=== PATIENT | male | born 1965 | race Caucasian/White ===

== ENCOUNTER 2022-04-08 12:04 | Outpatient (CLI) | payer OTHER, SELFPAY ==
[2022-04-11 12:21] LABS: Chloride* 101 mmol/L (96-114); Sodium* 138 mmol/L (135-149)
[2022-04-11 12:23] LABS: Cholesterol* 130 mg/dL (90-199); Creatinine* 0.8 mg/dL (0.5-1.5); Estimated Glomerular Filt Rate 103 ml/min
[2022-04-11 12:24] LABS: Alanine Aminotransferase* 26 U/L (4-50); Blood Urea Nitrogen* 17 mg/dL (7-30); Carbon Dioxide* 28 mmol/L (20-32); Glucose* 161 mg/dL (60-115); Triglycerides* 127 mg/dL (40-149)
[2022-04-11 12:25] LABS: HDL Cholesterol* 37 mg/dL (>=40); LDL Cholesterol Calculated 68 mg/dL (<100)
[2022-04-11 12:55] LABS: PSA Screen* 0.27 ng/mL (0.10-4.00)
== END 2022-04-08 12:05 | disposition home or self-care (01) ==
PROVIDERS: PCP Family Medicine; Visit Provider Family Medicine
DX: Z00.00 Encounter for general adult medical examination without abnormal findings (principal); E78.5 Hyperlipidemia, unspecified; I10 Essential (primary) hypertension; E11.9 Type 2 diabetes mellitus without complications; I48.91 Unspecified atrial fibrillation; M10.9 Gout, unspecified; Z12.5 Encounter for screening for malignant neoplasm of prostate
CPT/HCPCS: 80048; 80061; 82043; 82570; 84153; 84460

== ENCOUNTER 2023-06-12 10:18 | Outpatient (CLI) | payer OTHER, SELFPAY | END 2023-06-12 10:19 | disposition home or self-care (01) | PROVIDERS: PCP Family Medicine; Visit Provider Family Medicine | DX: Z12.5 Encounter for screening for malignant neoplasm of prostate (principal); E78.5 Hyperlipidemia, unspecified; I10 Essential (primary) hypertension | CPT/HCPCS: 80048; 80061; 84460; G0103 ==

== ENCOUNTER 2024-02-15 09:35 | Outpatient (CLI) | payer OTHER, SELFPAY | END 2024-02-15 09:36 | disposition home or self-care (01) | PROVIDERS: PCP Family Medicine; Visit Provider Family Medicine | DX: I10 Essential (primary) hypertension (principal); E78.5 Hyperlipidemia, unspecified; E11.9 Type 2 diabetes mellitus without complications; Z01.818 Encounter for other preprocedural examination | CPT/HCPCS: 80048; 85025 ==

== ENCOUNTER 2024-03-14 06:13 | Day surgery (SDC) | payer OTHER, SELFPAY ==
[2024-03-14 06:32] VITALS: BMI 36.1
[2024-03-14 07:07] VITALS: BP 131/94; PULSE 82; RESP 16; TEMP 36.2; O2SAT 95
[2024-03-14] MEDS: SODIUM CHLORIDE 0.9 % (FLUSH) 10 ML SYRINGE IVF (07:08)
[2024-03-14] MEDS: BUPIVACAINE 0.5 %/EPI 1:200K 30 ML INJECTION (07:20)
[2024-03-14] MEDS: LIDOCAINE 1%-EPI 1:100,000 20 ML INFILTRATI (07:20)
[2024-03-14] MEDS: CEFAZOLIN 2 GM INJ IVP (07:34)
[2024-03-14 08:44] VITALS: BP 110/67; PULSE 83; RESP 16; TEMP 36.3; O2SAT 94
--- NOTE | 2024-03-14 08:50 | W.ANESCHARGE ---
Anesthesia Charges Start Date/Time Anesthesia Start Date: 03/14/24 Anesthesia Start Time: 07:17 Stop Date/Time Anesthesia Stop Date: 03/14/24 Anesthesia Stop Time: 08:47
[2024-03-14 09:00] VITALS: BP 121/73; PULSE 80; RESP 16; O2SAT 93
[2024-03-14] MEDS: OxyCODONE/APAP 5-325 TABLET 1 TAB PO (09:03)
[2024-03-14 09:15] VITALS: BP 124/82; PULSE 82; RESP 16; O2SAT 92
[2024-03-14 09:30] VITALS: BP 122/71; PULSE 87; RESP 16; O2SAT 93
--- NOTE | 2024-03-14 09:44 | PM.ORPRC ---
Procedure Note Date of procedure: 03/14/24 Procedure: Preop diagnosis: Right upper extremity cubital tunnel syndrome, carpal tunnel syndrome Postop diagnosis: Right upper extremity cubital tunnel syndrome, carpal tunnel syndrome Procedure: Right upper extremity cubital tunnel release, carpal tunnel release Anesthesia: Local plus monitored anesthesia care Surgeon: Ej Garcia MD assistant account manager: Alaina Fried PA-C EBL: 2 mL Complications: None Specimens: None Drains: None Preoperative antibiotics: Ancef 3g Indications: The patient has a history of right upper extremity carpal tunnel syndrome, cubital tunnel syndrome symptoms. EMG/nerve conduction study confirms the diagnosis. Despite appropriate nonoperative management they continue to have symptoms. Operative intervention was recommended. The risks, benefits alternatives and expected outcomes were discussed in detail. These included but were not limited to: Infection, bleeding, injury to blood vessel or nerve, venous thromboembolism. All questions were answered to their satisfaction. The patient was placed supine on the operating room table. IV sedation was administered. Local anesthetic was injected. The upper extremity was prepped and draped in usual sterile fashion. The limb was exsanguinated with the Ignacio bandage, the pneumatic tourniquet was inflated to 250 mm of mercury. A longitudinal incision was made centered over the ulnar nerve at the cubital tunnel. Subcutaneous dissection was taken with the scalpel and Metzenbaum and tenotomy scissors to the ulnar nerve. Dissection was carried distally to the fascia over the flexor carpi ulnaris which was divided longitudinally. We were unable to visualize the motor branch to the FCU. Dissection was carried proximally into the triceps muscle belly. This results in a wide decompression of the ulnar nerve. Flexion and extension of the elbow shows the nerve is stable. A longitudinal incision was made centered over the radial border of the ring finger at the base of the palm. Subcutaneous dissection was sharply taken through the palmar fascia and the palmaris brevis to the transverse carpal ligament. The ligament was divided in line with the incision. Proximal and distal dissection was carried with tenotomy and Metzenbaum scissors for a wide decompression of the carpal tunnel. The wounds were irrigated with normal saline. The hand wound was closed with a 3-0 nylon. The elbow wound was closed with a 2-0 Vicryl and a 3-0 Monocryl in a subcuticular fashion. Glue was used to seal the skin. A soft dressing was applied. The tourniquet was released, sponge and needle counts were correct x 2. The patient tolerated the procedure well, there were no apparent complications. They were sent to same day surgery in satisfactory condition. Plan: Use of the upper extremity as tolerates. Discontinue the intraoperative dressing on postoperative day 3 and may get the wound wet as tolerates. Follow up in the office in 2 weeks for a wound check.
== END 2024-03-14 10:04 | disposition home or self-care (01) ==
LOC: OR 06:14
PROVIDERS: PCP Family Medicine; Visit Provider Orthopaedic Surgery
PROC: (CPT 64721; principal; 2024-03-14 07:15)
DX: G56.21 Lesion of ulnar nerve, right upper limb (principal); G56.01 Carpal tunnel syndrome, right upper limb
CPT/HCPCS: 64718; 64721; 01710; 82962; A9270; J0690; J1100; J2704; J3490

== ENCOUNTER 2024-05-03 09:26 | Outpatient (CLI) | payer OTHER, SELFPAY | END 2024-05-03 09:27 | disposition home or self-care (01) | PROVIDERS: PCP Family Medicine; Visit Provider Family Medicine | DX: E78.2 Mixed hyperlipidemia (principal); E11.9 Type 2 diabetes mellitus without complications; I10 Essential (primary) hypertension; Z79.899 Other long term (current) drug therapy | CPT/HCPCS: 80048; 80061; 84460; 85025 ==

== ENCOUNTER 2024-05-09 08:52 | Day surgery (SDC) | payer OTHER, SELFPAY ==
[2024-05-09] VITALS (26 sets, daily range): BP systolic 90–125; BP diastolic 63–89; PULSE 68–94; RESP 15–18; TEMP 35.9–36.8; O2SAT 90–95; BMI 35.7
[2024-05-09] MEDS: LACTATED RINGERS 1000 ML 1,000 ML 100 ML IV ×2 (07:25→12:20)
[2024-05-09] MEDS: CELECOXIB 200 MG CAPSULE PO (09:25)
[2024-05-09] MEDS: OXYCODONE (CR) 10 MG TAB.ER.12H PO (09:25)
[2024-05-09] MEDS: ACETAMINOPHEN 500 MG TABLET 1000 MG PO ×3 (09:25→21:41)
[2024-05-09] MEDS: SODIUM CHLORIDE 0.9 % (FLUSH) 10 ML SYRINGE IVF (10:20)
--- NOTE | 2024-05-09 10:20 | SUR.PREOP ---
shoulder cleanse done, nasal swab done
[2024-05-09] MEDS: fentaNYL 100 MCG/2 ML inj IVP (10:35)
[2024-05-09] MEDS: MIDAZOLAM HCL 1 MG/ML inj IVP (10:35)
--- NOTE | 2024-05-09 10:57 | SUR.PREOP ---
TIME?OUT:?1035 r leny lo mda pt consent right shoulder PT/RN/MDA?VERIFICATION?OF?SURGICAL?SITE,?PROCEDURE,?AND?CONSENT OBTAINED?PRIOR?TO?INVASIVE?PROCEDURE.
[2024-05-09] MEDS: CEFAZOLIN 1 GM inj 3 GM IVP (11:15)
[2024-05-09] MEDS: TRANEXAMIC ACID 100 MG/ML INJ 1000 MG IV (11:25)
--- NOTE | 2024-05-09 11:40 | P.NB_ITS ---
Nerve Block Nerve Block Time Seen by Provider: 10:38 Date Seen: 05/09/24 Type of block requested by surgeon for post-operative analgesia: supraclavicular Side: right Time out performed: Yes Verification of patient name: Yes Verification of date of : Yes Site marking: site marked Name of person performing procedure: Reji Continuous monitoring Was continuous monitoring of O2 sat, B/P, quality assurance monitor chassis, recorded every 15 minutes?: Yes Procedure Checklist: sterile prep, needles and gloves Ultrasound guided. Images saved: Yes Medications given in 5ml increments after negative aspiration: Ropivicaine %: 0.5 mL: 20 Needle gauge: 22 Precedex (mcg): 25 Patient tolerated procedure well: Yes Block Charges Block Charge (with Pro Fee): Brachial Plexus Use of Ultrasound Machine for Block: Yes- US Guidance/pain block
--- NOTE | 2024-05-09 11:40 | P.ANES_ITS ---
Anesthesia Charges Start Date/Time Anesthesia Start Date: 05/09/24 Anesthesia Start Time: 11:02 Stop Date/Time Anesthesia Stop Date: 05/09/24 Anesthesia Stop Time: 14:22 Coding CPT Codes CPT Codes: ANESTH SHOULDER REPLACEMENT - 86635 ([id number]) P2 - PATIENT W/MILD SYST DISEASE, QK - RN LIAISON 2-4 CNCRNT ANES PROC, QX - FRAUD MANAGER SVC W/ MD MED DIRECTION
--- NOTE | 2024-05-09 11:40 | W.ANESCHARGE ---
Anesthesia Charges Start Date/Time Anesthesia Start Date: 05/09/24 Anesthesia Start Time: 11:02 Stop Date/Time Anesthesia Stop Date: 05/09/24 Anesthesia Stop Time: 14:22 Coding CPT Codes CPT Codes: ANESTH SHOULDER REPLACEMENT - 78429 ([id number]) P2 - PATIENT W/MILD SYST DISEASE, QK - PLASTICS ENGINEER 2-4 CNCRNT ANES PROC, QX - FIRE ASSISTANT SVC W/ MD MED DIRECTION
--- NOTE | 2024-05-09 13:37 | CRLHL7_ITS ---
For Patients: As a result of the Cures Act, medical imaging exams and procedure reports are released immediately into your electronic medical record. You may view this report before your referring provider. If you have questions, please contact your health care provider. Indication: Postop Technique: Two views right shoulder Findings/Impression: Hardware from a right shoulder arthroplasty is in satisfactory position. Bone alignment is normal. No sign of acute fracture. Postop changes are within normal limits. Dictated by Won Short MD @ 05/10/2024 8:44:05 AM (Electronically Signed)
--- NOTE | 2024-05-09 13:41 | P.ORPRC_ITS ---
Procedure Note Date of procedure: 05/09/24 Procedure: PREOPERATIVE DIAGNOSIS: End-stage the upper extremity glenohumeral joint osteoarthritis POSTOPERATIVE DIAGNOSIS: End-stage Right upper extremity glenohumeral joint osteoarthritis NAME OF OPERATION: Right upper extremity total shoulder arthroplasty, biceps tenodesis SURGEON: Ej Garcia MD CALL OR CONTACT CENTRE MANAGER: Cass Mcduffie PA-C ANESTHESIA: General endotracheal ESTIMATED BLOOD LOSS: 100 mL COMPLICATIONS: None SPECIMENS: None DRAINS: None PREOPERATIVE ANTIBIOTICS: Ancef 2 grams IMPLANTS: 1. Tornier 40 large pegged glenoid component 2. Tornier 5B humeral stem 3. 54 mm x 18 mm, high eccentric humeral head INDICATIONS: The patient is a 58-year-old with a longstanding history of severe, unrelenting right shoulder pain secondary to end-stage glenohumeral joint osteoarthritis. Despite appropriate nonoperative management, including activity modification, anti-inflammatories, [id number] pain medication, physical therapy, and injections they continue to have pain and disability. Operative intervention was offered. The risks, benefits and expected outcomes were discussed in detail. These included but were not limited to: Infection, bleeding, injury to blood vessel or nerve, venous thromboembolism. All questions were answered to their satisfaction. Use of an judicial administrative assistant was necessary throughout the case for patient positioning and safety, soft tissue retraction, and closure. PROCEDURE: General anesthesia was administered. The patient was placed in the lazy beach chair position on the operating room table. The right upper extremity was prepped and draped in the usual sterile fashion. A standard deltopectoral incision was made. Subcutaneous dissection was taken with electrocautery to the deltopectoral interval. The cephalic vein was mobilized, lateral branches were cauterized. It was ligated, later in the case. We bluntly entered the deltopectoral interval. We freed up the deltoid. The upper 1/3 of the insertion of the pectoralis was divided with cautery. The static retractor was placed. The clavipectoral fascia and CA ligament were divided. The circumflex vessels were controlled with electrocautery. The biceps was dissected out of the bicipital groove, was tagged with a #2 FiberWire suture and divided proximally. A FiberWire suture was placed in the subscapularis. The subscap was subperiosteally elevated off of the lesser tuberosity. The humeral head was delivered into the wound. The intramedullary humeral cutting guide was placed. We made the cut at the anatomic neck, in 20? of retroversion. Humeral sounds were used. Broaches were used until rotational stability was achieved. The cut protector was placed. Attention was then turned to the glenoid. Hohmann retractors were placed posteriorly. The labrum and biceps stump were sharply debrided. The origin of the inferior glenohumeral ligaments were subperiosteally released off of the glenoid. The glenoid appeared to be a 40 large. The drill guide was placed centrally. The guide pin was placed. The reamer was used to concentric bone. The central drill hole was made. The drill guide was placed and single superior and 2 inferior drill holes were made. The trial glenoid component was placed and was an excellent fit. The glenoid was irrigated with normal saline then thoroughly dried. Cement was placed in the superior and inferior drill holes. The 40 large pegged glenoid component was placed and was impacted. This was an excellent fit. Attention then returned to the humerus. The trial humeral head was placed. We reduced the shoulder and took it through a range of motion. It was found to be stable with appropriate soft tissue tension. Trial humeral components were removed. We placed 2 x #2 FiberWire sutures through the lesser tuberosity for subsequent subscap repair. The biceps was tenodesed in the groove with sutures placed through drill holes, into the canal. We assembled the humeral component on the back table and impacted it into the canal. This had excellent purchase. The shoulder was reduced and was found to have appropriate soft tissue tension. We did a 3 min dilute Betadine solution soak. We irrigated the wound with 3 L of normal saline via pulse lavage. We repaired the subscapularis to the lesser tuberosity with our previously placed FiberWire sutures. The rotator interval was repaired with a #2 FiberWire suture. The deltopectoral interval was loosely reapproximated with an 0 Vicryl in an interrupted [id number] fashion. Subcutaneous tissues were closed with the 2-0 Vicryl and a running 3-0 Monocryl suture. The skin was sealed with glue. A dry dressing and sling were applied Sponge and needle counts were correct x2. The patient tolerated the procedure well, there were no apparent complications. They were awakened and extubated in the operating room, taken to the postanesthesia care unit in satisfactory condition. PLAN: The patient will be mobilized with physical therapy. The sling will be used for 6 weeks postoperatively. Active range of motion in forward flexion and abduction as tolerates. No external rotation greater than 0? for 6 weeks postoperatively. They will to be discharged to home once medically appropriate.
--- NOTE | 2024-05-09 14:26 | P.ANES_ITS ---
Anesthesia Charges Start Date/Time Anesthesia Start Date: 05/09/24 Anesthesia Start Time: 11:02 Stop Date/Time Anesthesia Stop Date: 05/09/24 Anesthesia Stop Time: 14:22 Coding CPT Codes CPT Codes: ANESTH SHOULDER REPLACEMENT - 16253 ([id number]) P2 - PATIENT W/MILD SYST DISEASE, QK - TELEMEDICINE PHYSICIAN 2-4 CNCRNT ANES PROC, QX - PROJECT MANAGER FINANCE SVC W/ MD MED DIRECTION
--- NOTE | 2024-05-09 14:26 | W.ANESCHARGE ---
Anesthesia Charges Start Date/Time Anesthesia Start Date: 05/09/24 Anesthesia Start Time: 11:02 Stop Date/Time Anesthesia Stop Date: 05/09/24 Anesthesia Stop Time: 14:22 Coding CPT Codes CPT Codes: ANESTH SHOULDER REPLACEMENT - 93313 ([id number]) P2 - PATIENT W/MILD SYST DISEASE, QK - INSPECTOR RETURNED MATERIALS 2-4 CNCRNT ANES PROC, QX - MUSHROOM GROWING SUPERVISOR SVC W/ MD MED DIRECTION
--- NOTE | 2024-05-09 14:34 | SUR.PHASEI ---
Patient arrived in PACU awake, denies pain or nausea, active ice applied, patient requesting ice chips.
--- NOTE | 2024-05-09 14:37 | SUR.PHASEI ---
Patient had shoulder xrays taken, remains comfortable when asked.
--- NOTE | 2024-05-09 14:46 | SUR.PHASEI ---
Patient meets discharge criteria from PACU
[2024-05-09] MEDS: LACTATED RINGERS 1000 ML 1,000 ML 75 ML IV (16:22)
[2024-05-09] MEDS: CEFAZOLIN 2 GM in 0.9 % SODIUM CHLORIDE Mini-bag 100 ML IVPB (18:44)
[2024-05-09] MEDS: OXYCODONE 5 MG TABLET PO ×2 (18:54→23:17)
--- NOTE | 2024-05-09 20:34 | P.IMCN_ITS ---
Date of Consult Patient: [facility] Patient Consult date: 05/09/24 Requesting Physician: Orthopedics Primary Care Provider: Won Morales MD Consult Narrative Reason for consult: Medical management Narrative: Julio Lopez is a 58 year old male past medical history significant for type 2 diabetes mellitus, hyperlipidemia, hypertension, osteoarthritis, gout, atrial fibrillation on chronic anticoagulation is POD#0 s/p right total shoulder arthroplasty, Dr. Garcia. There have been no perioperative complications or nursing concerns reported. Estimated total blood loss documented as 100 ml. Updated and reviewed the active medical problems, past medical history, past surgical history, social history, allergies and medications in our electronic EMR. Postoperatively, patient reports feeling pretty good. Pain is currently well managed. Finger still feel numb. Denies headache or dizziness. Denies chest pain or shortness of breath. Tolerating orals without nausea vomiting. Review of Systems Narrative: REVIEW OF SYSTEMS: Complete review of systems performed and negative unless otherwise stated in HPI or below. PFSH PFS Medical History Trigger index finger of right hand ?M65.321 - Trigger finger, right index finger (ICD-10) Right carpal tunnel syndrome ?G56.01 - Carpal tunnel syndrome, right upper limb (ICD-10) Type 2 diabetes mellitus, without long-term current use of insulin ?E11.9 - Type 2 diabetes mellitus without complications (ICD-10) Mixed hyperlipidemia ?E78.2 - Mixed hyperlipidemia (ICD-10) Primary hypertension ?I10 - Essential (primary) hypertension (ICD-10) Gout ?M10.9 - Gout, unspecified (ICD-10) Atrial fibrillation ?I48.91 - Unspecified atrial fibrillation (ICD-10) Surgical History History of carpal tunnel surgery of right wrist (03/14/24) ?Z98.890 - Other specified postprocedural states (ICD-10) 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) ?Z96.651 - Presence of right artificial knee joint (ICD-10) S/P arthroscopy of right shoulder (06/20/19) ?Z98.890 - Other specified postprocedural states (ICD-10) 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) ?Z96.641 - Presence of right artificial hip joint (ICD-10) Status post left knee replacement (05/08/18) ?Z96.652 - Presence of left artificial knee joint (ICD-10) History of elbow surgery (04/15/16) ?Z98.890 - Other specified postprocedural states (ICD-10) History of arthroscopy of left shoulder (04/04/19) ?Z98.890 - Other specified postprocedural states (ICD-10) History of arthroscopic knee surgery ?Z98.890 - Other specified postprocedural states (ICD-10) Family History Father Heart disease Brother Pancreatic cancer Mother Diabetes Sister Diabetes Social History Narrative: , 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, optical store manager, non-smoker, social EtOH What is your current living situation?: I presently have a place to live Problems where you live: no known problems In the past 12 months, utilities in danger of being shut off: no In past 12 months, lack of transportation kept you from medical appts, meetings, work, or getting things needed for daily living: no In the past 12 mos, have been you worried that your food would run out before you had money to buy more?: never true In the past 12 mos, the food you bought just didn't last and you didn't have money to buy more?: never true Highest level of school completed/degree received: decline to answer Smoking Status: Former smoker What tobacco products do you use: cigarettes Smoking quit date/years: >15 years ago Do you use any of these nicotine containing products: None Second hand tobacco smoke exposure: No How often do you have a drink containing alcohol: monthly or less Alcohol type: beer How many standard drinks containing alcohol do you have on a typical day: 1 or 2 How often do you have six or more drinks on one occasion: Never AUDIT-C Alcohol total score: 1 Non-prescribed substance use: denies use Caffeine: Yes (soda) How often does anyone, including family, friends and others, physically hurt you : never How often does anyone, including family, friends and others, insult or talk down to you: never How often does anyone, including family, friends and others, threaten you with harm: never How often does anyone, including family, friends and others, scream or curse at you: never service: No Meds Home Medications and Allergies Home Medications ?Medication ?Instructions ?Recorded ?Confirmed ?Type naproxen sodium 220 mg capsule 220 mg PO BID PRN 04/08/22 05/09/24 History (Aleve) simvastatin 20 mg tablet 20 mg PO HS 05/09/24 05/09/24 History Allergies Allergy/AdvReac Type Severity Reaction Status Date / Time morphine Allergy Unknown rash, Verified 05/09/24 08:58 tingling and pain up arm CATHERINE Inhibitors AdvReac Mild Cough Verified 05/09/24 08:58 lisinopril AdvReac Mild Cough Verified 05/09/24 08:58 Exam Narrative: Exam Narrative: PHYSICAL EXAM General: Pleasant, conversant, NAD HEENT: Normocephalic, atraumatic, sclera white, EOMI, oral mucosa moist Cardiovascular: IRRR, S1S2. No pitting edema Pulmonary: CTA bilaterally without rhonchi, rales, expiratory wheezes. No dyspnea Neurological: Alert, answering questions appropriately, cranial nerves intact, no focal findings Extremities: No gross joint deformity or swelling. Postoperative dressing in place, dry. Immobilizer. Neurovascularly intact Skin: Warm, dry. Const: Vital Signs, click to edit/add: Vital Signs - 24 hr 05/09/24 09:28 05/09/24 10:19 05/09/24 14:18 Temperature 97.8 F 97.3 F L Pulse Rate 72 68 81 Respiratory Rate 18 18 15 Blood Pressure 125/81 118/89 102/66 Pulse Oximetry 95 95 90 Oxygen Delivery Me thod Room Air Room Air Nasal Cannula Fraction of Inspir ed Oxygen 2 05/09/24 14:20 05/09/24 14:25 05/09/24 14:30 Temperature Pulse Rate 76 76 76 Respiratory Rate 15 15 18 Blood Pressure 100/70 99/71 100/70 Pulse Oximetry 90 90 93 Oxygen Delivery Me thod Nasal Cannula Nasal Cannula Nasal Cannula Fraction of Inspir ed Oxygen 2 2 2 05/09/24 14:35 05/09/24 14:40 05/09/24 14:45 Temperature 97.4 F L Pulse Rate 79 75 77 Respiratory Rate 18 16 16 Blood Pressure 107/74 101/71 106/65 Pulse Oximetry 94 90 90 Oxygen Delivery Me thod Nasal Cannula Room Air Room Air Fraction of Inspir ed Oxygen 2 05/09/24 14:57 05/09/24 14:57 05/09/24 15:00 Temperature 97.0 F L Pulse Rate 74 78 Respiratory Rate 16 16 16 Blood Pressure 97/65 94/69 Pulse Oximetry 93 93 94 Oxygen Delivery Me thod Room Air Room Air Room Air Fraction of Inspir ed Oxygen 05/09/24 15:15 05/09/24 15:30 05/09/24 15:45 Temperature 96.7 F L Pulse Rate 75 73 78 Respiratory Rate 16 16 16 Blood Pressure 90/70 90/68 96/63 Pulse Oximetry 94 94 94 Oxygen Delivery Me thod Room Air Room Air Room Air Fraction of Inspir ed Oxygen 05/09/24 16:00 05/09/24 16:15 05/09/24 16:30 Temperature 96.9 F L Pulse Rate 76 75 80 Respiratory Rate 16 16 16 Blood Pressure 99/72 100/72 107/72 Pulse Oximetry 93 94 93 Oxygen Delivery Me thod Room Air Room Air Room Air Fraction of Inspir ed Oxygen 05/09/24 17:00 05/09/24 18:00 05/09/24 19:27 Temperature 97.1 F L 98.2 F Pulse Rate 79 85 84 Respiratory Rate 16 16 16 Blood Pressure 108/68 118/76 107/77 Pulse Oximetry 94 94 95 Oxygen Delivery Me thod Room Air Room Air Room Air Fraction of Inspir ed Oxygen 05/09/24 20:15 Temperature 98.2 F Pulse Rate 89 Respiratory Rate 16 Blood Pressure 109/72 Pulse Oximetry 95 Oxygen Delivery Me thod Room Air Fraction of Inspir ed Oxygen 2 Assessment and Plan Assessment and plan (1) Status post replacement of right shoulder joint: Problem comment: -POD#0 s/p right total shoulder arthroplasty, Dr. Garcia -perioperative management including pain management and anticoagulation per Orthopedic surgery - patient is chronically on apixaban 5 mg b.i.d. -encourage postoperative pulmonary hygiene -PT OT consults -plan to discharge home with spouse tomorrow Status: Acute (2) Type 2 diabetes mellitus, without long-term current use of insulin: Problem comment: -most recent A1c 6.5 -hold home metformin -glucose checks ACHS, defer insulin sliding scale for now as has been NPO, adjust as necessary Status: Acute (3) Mixed hyperlipidemia: Problem comment: -resume statin Status: Acute (4) Primary hypertension: Problem comment: -resume amlodipine when discharges to home Status: Acute (5) Atrial fibrillation: Problem comment: -on chronic anticoagulation -continue metoprolol b.i.d. with parameters -apixaban 5 mg p.o. b.i.d. Status: Acute
[2024-05-09] MEDS: SENNOSIDES 1 TAB TABLET 2 TAB PO (21:40)
[2024-05-09] MEDS: APIXABAN 5 MG TABLET PO (21:40)
[2024-05-09] MEDS: METOPROLOL TARTRATE 100 MG TABLET PO (21:41)
[2024-05-09] MEDS: SIMVASTATIN 20 MG TABLET PO (21:41)
[2024-05-09] MEDS: INSULIN ASPART 100 UNIT/ML SUBCUT (21:42)
[2024-05-10] MEDS: CEFAZOLIN 2 GM in 0.9 % SODIUM CHLORIDE Mini-bag 100 ML IVPB (01:25)
[2024-05-10 02:10] VITALS: BP 107/74; PULSE 91; RESP 16; TEMP 36.8; O2SAT 93
--- NOTE | 2024-05-10 03:45 | PC.NURSE ---
Pt rested well this night. VS unremarkable. Pain controlled. Up SBA and voiding. No N/V. Ice applied to R shoulder. Tolerating reg diet.
[2024-05-10 03:53] VITALS: TEMP 36.8
[2024-05-10] MEDS: ACETAMINOPHEN 500 MG TABLET 1000 MG PO ×2 (03:53→10:20)
[2024-05-10 06:50] LABS: Hematocrit 41.6 % (37.0-53.0); Hemoglobin* 14.1 gm/dL (13.5-17.5); Mean Corpuscular HGB Conc 34 gm/dL (32-36); Mean Corpuscular Hemoglobin 31 pg (26-34); Mean Corpuscular Volume 91 fL (80-100); Platelet Count* 169 K/uL (140-440); Red Blood Count 4.58 m/uL (4.30-5.90); White Blood Count* 10.37 K/uL (4.50-11.00)
[2024-05-10 06:55] LABS: Slide Review Reflex No
[2024-05-10 06:56] LABS: Potassium* 3.9 mmol/L (3.6-5.1); Sodium* 134 mmol/L (135-149)
[2024-05-10 06:58] LABS: Creatinine* 0.8 mg/dL (0.5-1.5); Est. Creatinine Clearance* 118.83; Estimated Glomerular Filt Rate 102 ml/min
[2024-05-10 06:59] LABS: Blood Urea Nitrogen* 18 mg/dL (7-30)
[2024-05-10 07:03] VITALS: PULSE 80
[2024-05-10] MEDS: OXYCODONE 5 MG TABLET PO ×2 (07:28→10:20)
[2024-05-10 07:44] VITALS: BP 108/78; PULSE 84; RESP 16; TEMP 36.6; O2SAT 92
--- NOTE | 2024-05-10 08:29 | P.ORPN_ITS ---
Subjective Subjective Time Seen by Provider: 07:00 Date Seen: 05/10/24 Principal diagnosis: Day 1 s/p right TSA, Dr. Garcia Interval history: Ivan is doing well and resting comfortably in bed. No acute concerns. C/o mild- moderate right shoulder pain that is well managed with sling use, icing and oral pain medications. Denies: chest pain, SOB, fever, chills, nausea, vomiting. Admits to tingling in right thumb - due to block. Ortho Exam Narrative Exam Narrative: Incision/Dressing: Dressing appears clean and dry. No drainage present. Mepilex intact. Right shoulder appears moderately swollen but supple with no obvious erythema, fluctuance or excessive warmth. Ice is being utilized as needed. CMS: Intact distally with 2+ Radial pulse. Decreased sensation over deltoid. Sensation confirmed distally. Constitutional: Patient is alert and oriented x3. Patient is in no acute distress and converses without labored breathing. Patient is able to make decisions and demonstrates good insight. Patient is pleasant and cooperative. Affect is full range and appropriate for the circumstances. Other: Patient is wearing their sling during this visit. Const Vital Signs, click to edit/add: Vital Signs - 24 hr 05/09/24 09:28 05/09/24 10:19 05/09/24 14:18 Temperature 97.8 F 97.3 F L Pulse Rate 72 68 81 Pulse Rate [Right Pulse Oximeter] Respiratory Rate 18 18 15 Blood Pressure 125/81 118/89 102/66 Blood Pressure [Left Arm] Pulse Oximetry 95 95 90 Oxygen Delivery Method Room Air Room Air Nasal Cannula Fraction of Inspired Oxygen 2 05/09/24 14:20 05/09/24 14:25 05/09/24 14:30 Temperature Pulse Rate 76 76 76 Pulse Rate [Right Pulse Oximeter] Respiratory Rate 15 15 18 Blood Pressure 100/70 99/71 100/70 Blood Pressure [Left Arm] Pulse Oximetry 90 90 93 Oxygen Delivery Method Nasal Cannula Nasal Cannula Nasal Cannula Fraction of Inspired Oxygen 2 2 2 05/09/24 14:35 05/09/24 14:40 05/09/24 14:45 Temperature 97.4 F L Pulse Rate 79 75 77 Pulse Rate [Right Pulse Oximeter] Respiratory Rate 18 16 16 Blood Pressure 107/74 101/71 106/65 Blood Pressure [Left Arm] Pulse Oximetry 94 90 90 Oxygen Delivery Method Nasal Cannula Room Air Room Air Fraction of Inspired Oxygen 2 05/09/24 14:57 05/09/24 14:57 05/09/24 15:00 Temperature 97.0 F L Pulse Rate 74 78 Pulse Rate [Right Pulse Oximeter] Respiratory Rate 16 16 16 Blood Pressure 97/65 94/69 Blood Pressure [Left Arm] Pulse Oximetry 93 93 94 Oxygen Delivery Method Room Air Room Air Room Air Fraction of Inspired Oxygen 05/09/24 15:15 05/09/24 15:30 05/09/24 15:45 Temperature 96.7 F L Pulse Rate 75 73 78 Pulse Rate [Right Pulse Oximeter] Respiratory Rate 16 16 16 Blood Pressure 90/70 90/68 96/63 Blood Pressure [Left Arm] Pulse Oximetry 94 94 94 Oxygen Delivery Method Room Air Room Air Room Air Fraction of Inspired Oxygen 05/09/24 16:00 05/09/24 16:15 05/09/24 16:30 Temperature 96.9 F L Pulse Rate 76 75 80 Pulse Rate [Right Pulse Oximeter] Respiratory Rate 16 16 16 Blood Pressure 99/72 100/72 107/72 Blood Pressure [Left Arm] Pulse Oximetry 93 94 93 Oxygen Delivery Method Room Air Room Air Room Air Fraction of Inspired Oxygen 05/09/24 17:00 05/09/24 18:00 05/09/24 19:27 Temperature 97.1 F L 98.2 F Pulse Rate 79 85 84 Pulse Rate [Right Pulse Oximeter] Respiratory Rate 16 16 16 Blood Pressure 108/68 118/76 107/77 Blood Pressure [Left Arm] Pulse Oximetry 94 94 95 Oxygen Delivery Method Room Air Room Air Room Air Fraction of Inspired Oxygen 05/09/24 20:15 05/09/24 21:41 05/09/24 21:47 Temperature 98.2 F 98.2 F 98.2 F Pulse Rate 89 94 Pulse Rate [Right Pulse Oximeter] Respiratory Rate 16 16 Blood Pressure 109/72 108/73 Blood Pressure [Left Arm] Pulse Oximetry 95 93 Oxygen Delivery Method Room Air Room Air Fraction of Inspired Oxygen 2 05/09/24 21:57 05/09/24 22:42 05/09/24 22:47 Temperature 98.2 F Pulse Rate 84 Pulse Rate [Right Pulse Oximeter] 94 Respiratory Rate 16 16 Blood Pressure Blood Pressure [Left Arm] 109/72 Pulse Oximetry 93 93 Oxygen Delivery Method Room Air Room Air Fraction of Inspired Oxygen 05/10/24 02:10 05/10/24 03:53 05/10/24 07:03 Temperature 98.2 F 98.2 F Pulse Rate 80 Pulse Rate [Right Pulse Oximeter] 91 Respiratory Rate 16 Blood Pressure Blood Pressure [Left Arm] 107/74 Pulse Oximetry 93 Oxygen Delivery Method Room Air Fraction of Inspired Oxygen 05/10/24 07:44 05/10/24 07:44 Temperature 97.9 F Pulse Rate Pulse Rate [Right Pulse Oximeter] 84 Respiratory Rate 16 16 Blood Pressure Blood Pressure [Left Arm] 108/78 Pulse Oximetry 92 92 Oxygen Delivery Method Room Air Room Air Fraction of Inspired Oxygen Assessment and Plan Assessment and plan (1) Status post replacement of right shoulder joint: Problem details: -POD#1 s/p right total shoulder arthroplasty, Dr. Garcia Status: Acute Assessment and Plan: Sling use x 6 weeks postoperative. May remove to work on elbow/hand/wrist ROM. No external rotation of the right shoulder past 0? x 6 weeks. Forward flexion and abduction of the right shoulder is allowed as tolerated. For pain management, Oxycodone and acetaminophen PRN in addition to frequent icing. Minimize use of narcotics. Patient is chronically on apixaban 5 mg b.i.d. Dressing is waterproof. May shower. Surgical glue covers the wound. Follow-up with [facility] in 7-10 days with Tarsha Armenta PA-C. Follow-up with Dr. Garcia at 6 weeks postoperative. Phone Orthopedics with any questions or concerns.
[2024-05-10] MEDS: allopurinoL 300 MG TABLET PO (08:52)
[2024-05-10] MEDS: SENNOSIDES 1 TAB TABLET 2 TAB PO (08:52)
[2024-05-10] MEDS: METOPROLOL TARTRATE 100 MG TABLET PO (08:53)
[2024-05-10] MEDS: APIXABAN 5 MG TABLET PO (08:53)
== END 2024-05-10 10:24 | disposition home or self-care (01) ==
LOC: OR 08:53 → MEDSURG 08:56
PROVIDERS: PCP Family Medicine; Visit Provider Orthopaedic Surgery
PROC: 0RRJ0JZ Replacement of Right Shoulder Joint with Synthetic Substitute, Open Approach (ICD-10-PCS; CPT 23472; principal; 2024-05-09 10:30)
DX: M19.011 Primary osteoarthritis, right shoulder (principal); G89.18 Other acute postprocedural pain; I10 Essential (primary) hypertension; E11.9 Type 2 diabetes mellitus without complications; Z79.84 Long term (current) use of oral hypoglycemic drugs; I48.20 Chronic atrial fibrillation, unspecified; Z79.01 Long term (current) use of anticoagulants; E78.2 Mixed hyperlipidemia; M10.9 Gout, unspecified
CPT/HCPCS: 23472; 23430; 01638; 36415; 64415; 73030; 76942; 82565; 82962; 84132; 84295; 84520; 85027; 97110; 97165; A9270; C1776; J0330; J0690; J1100; J2250; J2371; J2405; J2704; J2710; J2795; J3010; J7120; L3670

== ENCOUNTER 2024-05-25 08:48 | Emergency (ER) | payer OTHER, SELFPAY ==
--- OUTSIDE RECORDS SUMMARY | 2024-05-25 08:50 | XMS_ITS | Clinical Summary ---
Author Organization [facility] Address [address] , [address] [place] [address] Phone Care Team Providers Care Landscape Architecture Teacher Name Role Phone [facility] Unavailable Unava ilable Conditions or Problems Problem Name Problem Code Onset Date Status Entry Date Provider Comment Standard Description Annotate Ulnar neuropathy , right 798423773 (SNOMED CT) Active [place] MD Ulnar neuropathy Median neuropathy , right [id number] (SNOMED CT) Active [place] MD Median neuropathy Medications No information available. Medications Administered No information available. Allergies, Adverse Reactions, Alerts No information available. Results Date Name Value Unit Range Flag Description Internal Other: Verbal Autho rization/Emergency Contact - OBS VERBAL_EMER Done Verbal au thorization and emergency contact Internal Other: Authorizatio n - OBS [email or web address] Yes Authoriza tion: Release of Information - Authorize [facility] - Payment and Healthcare Operations ROIAUTHOTHER Yes Authoriz ation: Release of Information - Authorize Others/Insurance - Payment and Healthcare Operations HIECONSENT Yes Consent To Release information to the Health Information Exchange (HIE) [email or web address] Yes Authorizat ion: Authorization for [facility] to leave messages, voicemail, send text messages, send emails AUTHRELHCARE Yes Authoriz ation: Release/Retrieval of Information to/from Healthcare Facilities, Pharmacy Benefit Payers and Providers AUTHPRIVPRAC Yes Authoriz ation: Notice of privacy practices AUTHBENEFIT Yes Authoriza tion: Assignment of Benefits and Payment Agreement Plan of Care No information available. Procedures Code Procedure Name Date Entry Date CPT-32959 Nerve Conduction 11-12 studies CPT-74211 EMG with NCS (5+ muscles) - 1 limb 12/20 Vital Signs No information available. Immunizations No information available. Advance Directives No information available.
--- OUTSIDE RECORDS SUMMARY | 2024-05-25 08:50 | XMS_ITS | Clinical Summary ---
Author Organization [facility] Address [place], [place] [address] Care Team Providers Care Youth Minister Name Role Phone Julio Caicedo MD Primary Care Provid er Allergies Active Allergy Reactions Criticality Noted Date Comments Lisinopril Cough 05/01/2018 Morphine Other - Describe In Comment Field 01/19/2012 Vascular burning sensation with IV morphine Medications chlorthalidone (HYGROTON) 25 mg tablet Take 1 tablet by mouth once daily. 0 08/18/2011 Active simvastatin (ZOCOR) 20 mg tablet Take 1 tablet by mouth at bedtime. 0 08/18/2011 Active multivitamin (MVI) tablet Take 1 tablet by mouth once daily. 0 08/18/2011 Active metoprolol tartrate (LOPRESSOR) 50 mg tablet Take 1 tablet by mouth 2 times daily. 0 05/01/2018 Active naproxen sodium (ALEVE) 220 mg cap Take by mouth. 0 05/01/2018 Active apixaban (ELIQUIS) 5 mg tablet Take 1 tablet by mouth 2 times daily. 0 05/01/2018 Active allopurinol (ZYLOPRIM) 300 mg tablet Take 1 tablet by mouth once daily. 0 05/01/2018 Active Active Problems Problem Noted Date Diagnosed Date Chronic fatigue 2018 Morbid obesity due to excess calories 2018 GERD (gastroesophageal reflux disease) 2 Chest discomfort 06/02/2011 Overview (06/02/2011): -09/23/[address] [facility] No coronary artery stenosis. Mild coronary artery disease. The patient's calcium score equals 82.7. No aneurysmal dilatation or evidence of dissection of the aorta. No pulmonary emboli. Atrial fibrillation 06/02/2011 Overview (01/03/2012): -06/07/2011 ECHO LA (<4.0 cm) 3.75 cm -06/02/2011 Holter Sinus rhythm with HR 49 to 148 bpm with average rate 89 bpm. Rare isolated Ventricular events (3) Rare supraventricular events (79) all isolated. No pause or ST events. No symptoms recorded. -Recurrent atrial fibrillation 12/28/2011. -12/29/2011 ECHO while patient in sinus rhythm. Mild right ventricular enlargement. Right ventricular systolic function could not be adequately assessed. Normal left ventricular size and systolic function. Mild left atrial enlargement. There is no significant functional valve abnormality. Pulmonary artery systolic pressure could not be estimated. Hypertension Overview (06/10/2011): -06/07/2011 ECHO Normal left ventricular size, systolic function, estimated ejection fraction 60%. Mild sinuses of Valsalva enlargement, 3.9cm No significant valvular disease Mild tricuspid regurgitation without pulmonary hypertension Normal right heart structures Normal diastolic assessment Hypercholesteremia Family History Medical History Relation Name Comments Heart Disease Father CABG Relation Name Status Comments Father Social History Tobacco Use Types Packs/Day Years Used Date Smoking Tobacco: Former Cigarettes Q uit: 09/23/2000 Smokeless Tobacco: Current Chew Comments:1 can chew/ 3-4 day s Alcohol Use Standard Drinks/Week Comments Yes 0.8 (1 standard drink = 0.6 oz p ure alcohol) 4 beers per month 08/18/11 Sex and Gender Information Value Date Recorded Sex Assigned at Not on file Legal Sex Male 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 Gender Identity Not on file Sexual Orientation Not on file Obstetrics History Last Filed Vital Signs Vital Sign Reading Time Taken Comments Blood Pressure 136/102 05/01/2018 9:39 AM DOCK WORKER Pulse 89 05/01/2018 9:39 AM DOCK WORKER Temperature 36.7 C (98 F) 09/23/2010 12:45 PM CDT Respiratory Rate 18 09/23/2010 6:00 PM CDT Oxygen Saturation 97% 05/01/2018 9:39 AM DOCK WORKER Inhaled Oxygen Concentration - - Weight 137.4 kg (303 lb) 05/01/2018 9:39 AM DOCK WORKER Height 190.5 cm (6' 3) 05/01/2018 9:39 AM DOCK WORKER Body Mass Index 37.87 05/01/2018 9:39 AM DOCK WORKER Plan of Treatment Health Maintenance Due Date Last Done Comments Tdap 08/18/1975 Depression screening for age 12+ 1976 HIV for age 15-65 08/18/1979 Hepatitis C screening for ag e 18-79 1982 Tetanus booster 1984 Colonoscopy through age 75 2009 Lipids for age 45-75 2009 Pneumococcal series for age 50+ (1 of 1 - PCV) 2014 Zoster (shingles) series for age 50+ (1 of 2) 2014 BMI (ht and wt on same day) for age 18+ 05/01/2019 05/01/2018 COVID-19 vaccine series (2023- season) 2023 Influenza for age 50-64 12/24/2023 Pneumococcal series for age 6-49 Aged Out No longer eligible based on patient's age to complete this topic Care Teams Youth Minister Relationship Specialty Start Date End Date Julio Caicedo MD PCP - General Family Practice 08/18/11
--- OUTSIDE RECORDS SUMMARY | 2024-05-25 08:50 | XMS_ITS | Clinical Summary ---
Author Organization [facility] Address [address] [place] [address] Care Team Providers Care Frame Trimmer Name Role Phone Md NILS Ramirez Primary Care Provider [phone] Source Comments You are receiving this document as you are listed as the primary care provider,follow-up provider, or the patient has been referred to you for consultation.This is in compliance with the Medicare and[facility] EHR Incentive Program,which states Providers who transition their patient to another setting of careor provider of care or refers their patient to another provider of care shouldprovide summary care record for each transition of care or referral. [facility] Allergies No known active allergies Medications Medication Sig Dispensed Refills Start Date End Date Status unknown medication Indications: PN: 05/20/2010 Active cholecalciferol (AKA VITAMIN D3) 2000 UNITS tablet Take 1 tablet by mouth daily (every 24 hours). 90 3 09/07/2009 Active simvastatin (AKA ZOCOR) 20 MG tablet TAKE 1 TABLET EVERY EVENING FOR HIGH CHOLESTEROL 90 tablet 0 07/04/2011 Active metoprolol succinate (TOPROL XL) 50 MG 24 hour release tablet Take 50 mg by mouth two times a day. Active PREDNISONE OR 20mg tablets. Take 4 tabs daily for 4 days, 1 tab daily for 4 days, then 1/2 tab daily for 4 days. Then stop. Active Febuxostat (ULORIC) 80 MG 80 mg daily. 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 Overview (12/14/2016): LW Modifier: decreased libido LW Onset: 48Ucl88 ; Erectile Dysfunction Gout 10/15/2004 Overview (12/14/2016): LW Onset: 38Zbe30 ; Gout NOS Obesity 10/15/2004 Overview (11/26/2015): LW Onset: 32Czi35 Hyperlipidemia 10/15/2004 Overview (11/26/2015): LW Onset: Immunizations Name Administration Dates Next Due Flu Vac Preserv Free (3+yrs) 03/09/2009,03/22/20 05 TDAP (BOOSTRIX) 08/18/2008 Social History Tobacco Use Types Packs/Day Years Used Date Smoking Tobacco: Never Cigarettes Smokeless Tobacco: Former Comments:Quit smoking: Alcohol Use Standard Drinks/Week Comments Yes 0 (1 standard drink = 0.6 oz pur e alcohol) Sex and Gender Information Value Date Recorded Sex Assigned at Not on file Gender Identity Not on file Sexual Orientation Not on file Last Filed Vital Signs Vital Sign Reading Time Taken Comments Blood Pressure 157/116 10/26/2018 11:21 AM CDT Pulse 91 10/26/2018 11:21 AM CDT Temperature 36.3 C (97.3 F) 04/08/2005 3:16 PM INTERACTIVE MEDIA MARKETING DIRECTOR C: 36.3 C Respiratory Rate - - Oxygen Saturation - - Inhaled Oxygen Concentration - - Weight 133.8 kg (295 lb) 10/26/2018 11:21 AM CDT Height 190.5 cm (6' 3) 08/03/2018 7:50 AM CDT Body Mass Index 36.87 08/03/2018 7:50 AM CDT Plan of Treatment Health Maintenance Due Date Last Done Comments Colon Cancer Screening Plan Due 1964 Hep C Screening (Preventive Services) 1965 PSA Screening Discussion 1964 HIV Screening (Preventive Services) 1980 Adult Preventive Visit 1982 HepB (1) 08/18/1983 Cholesterol 05/13/2015 05/13/2010, 07/24, 07/10/2009, Additional history exists COVID-19 Vaccine ( season) 2023 08/01/2020, 07/11/2020 Influenza (#1) 2023 03/09/2009, 03/22/2005 DTaP/Tdap/Td (3 - Tdap) 02/26/2029 02/26/2019, 08/18 Pneumococcal Aged Out 03/09/2009 No longer eligi ble based on patient's age to complete this topic Zoster/Shingles Completed 05/07/2020, 03/02/2020 HepA Aged Out No longer eligi ble based on patient's age to complete this topic Hib Aged Out No longer eligi ble based on patient's age to complete this topic IPV (Polio) Aged Out No longer eligi ble based on patient's age to complete this topic MCV4 Aged Out No longer eligi ble based on patient's age to complete this topic Procedures Procedure Name Priority Date/Time Associated Diagnosis Comments LIPID PANEL & DIRECT LDL (IF NEEDED) Routine 05/13/2010 8:01 AM INTERACTIVE MEDIA MARKETING DIRECTOR from Last 3 Months or Most Recently Relevant to Health Maintenance Results * (ABNORMAL) Lipid Panel and Direct LDL(If Needed) (05/13/2010 8:01 AM INTERACTIVE MEDIA MARKETING DIRECTOR) Cholesterol 156 0 - 200 mg/dL HP CONVERSION Triglycerides 143 0 - 149 mg/dL HP CONVERSION HDL Cholesterol 35(L) >39 mg/dL HP CONVERSION Cholesterol/HDL Ratio Screen 4.5 No normal range HP CONVERSION LDL Calculated 92 19 - 130 mg/dL HP CONVERSION Hours Fasting 12.0 No normal range HP CONVERSION 05/13/2010 8:01 AM INTERACTIVE MEDIA MARKETING DIRECTOR Agnieszka Berg APRN, BEHAVIORAL PSYCHOLOGIST LAB_1 HP CONVERSION from Last 3 Months or Most Recently Relevant to Health Maintenance Care Teams Frame Trimmer Relationship Specialty Start Date End Date Md Ashley, [place] [address] PCP - General 09/23/10
--- OUTSIDE RECORDS SUMMARY | 2024-05-25 08:50 | XMS_ITS | Continuity of Care Document ---
Author Organization [facility] Address [address] [place] [address] Phone Care Team Providers Care Shellfish Manager Name Role Phone Sergo Olvera Unavailable Unavailable Allergies, Adverse Reactions, Alerts Substance Reaction Status Criticality morphine Skin irritation Active No Informati on Medications Medication Instructions Dosage Effective Dates (start - stop) Status Comments METOPROLOL SUCCINATE (unknown strength) Not Available - Active SIMVASTATIN (unknown strength) Not Available - Active ULORIC (unknown strength) Not Available - Active CHLORTHALIDONE (unknown strength) Not Available - Active ELIQUIS (unknown strength) Not Available - Active Procedures Procedure Date Office/Outpatient Visit,[facility] 2018 Office/Outpatient Visit,[facility] 2018 X-Ray Exam Of Neck Spine, 4+ Views Advance Directives Directive Yes / No Effective Date File Name No Information Encounters Encounter Description Practice Location Reason(s) For Visit Diagnoses Date Provider Providers Copied on Encounter Office/Outpat ient Visit,[place], [facility], [address], [place], [place], [id number], [place] tel:[phone] [facility] CervicalgiaOther spondylosis, cervical region 9 [address]. [facility], [address], [place], [place], [id number] , [place]. tel:[phone] Referring Provider: Akash Keys [facility] [address] [place], [address]. tel:[phone] Family History Family Member Type Diagnosis Age At Onset No Information Payers Payer name Insurance type Covered democrat ID Authoriza tiyanira(s) No Information Social History Type Description Quantity Date Captured Comments Alcohol Use Details Unknown Caffeine Use Details Unknown Tobacco Use Status Never smoked tobacco 2018 Smoking Status Never smoker Non-Smoking Tobacco Use Details : No Details Available : No Details Available Sex Male Vital Signs Date / Time: Height Weight BMI Pulse Rate Blood Pressure Temperature Respiratory Rate Body Surface Area Head Circumference Head Circ. Percentile Wt./Juan. Percentile BMI percentile Pulse Ox Inhaled Ox 8:14 AM 73.50 in 127.913 kg (282.00 lbs) 36.7 0 kg/m eter (2) 77 /min 120/91 mm[Hg] Chief Complaint And Reason For Visit No Information Reason For Referral Reason For Referral No Information History Of Present Illness Encounter Date Complaint History Of Prese nt Illness No Information Functional Status Date Functional Assessmen t No Information Instructions Date Instruction Additional Infor mation No Information Assessments Type Assessment Date assessment Cervicalgia assessment Other spondylosis, cervical femi on Patient Care Teams Name Effective Dates (start - stop) Status Members No Information
--- OUTSIDE RECORDS SUMMARY | 2024-05-25 08:50 | XMS_ITS | Continuity of Care Document ---
Author Organization [facility] Address [address] [address] [place] [address] Phone Care Team Providers Care Labor And Delivery Nurse Name Role Phone Umm WRAY, med Unavailable Unavailable Allergies, Adverse Reactions, Alerts Substance Reaction Status Criticality morphine rash/pain Active No Information Medications Medication Instructions Dosage Effective Dates (start - stop) Status Comments metoprolol tartrate 25 mg tablet take 1 tablet by oral route 2 times every day 25 MG - Active lisinopril 20 mg tablet take 1 tablet by oral route every day 20 MG - Active chlorthalidone 25 mg tablet take 1 table t by oral route every day 25 MG - Active simvastatin 20 mg tablet take 1 tablet b y oral route every day in the evening 20 MG - Active aspirin 81 mg chewable tablet chew 1 tablet by oral route every day 81 MG - Active Aleve 220 mg tablet take 1 tablet by oral route every 12 hours as needed 220 MG - Active Colcrys 0.6 mg tablet take 1 Tablet by oral route every day 0.6 MG - Active MiralaxBisacodylMagCit Colon Prep Use as directed - No Longer Active Procedures Procedure Date Colonoscopy Flex; W/remov Les- 15 Colonoscopy Flex; W/bx 1/mx Level Iv-surg Path Gross/micro 15 Advance Directives Directive Yes / No Effective Date File Name No Information Encounters Encounter Description Practice Location Reason(s) For Visit Diagnoses Date Provider Providers Copied on Encounter [facility], [address] [address], [place], [id number], [place] tel:[phone] [place] [facility] Colonic polypsFamily history of colon polypsFamily history of malignant neoplasm of gastrointestinal tractDiverticulos is of colonColon Cancer ScreeningColon Cancer ScreeningDivertic ulosis Of ColonBenign Neoplasm ColonFamily Hx/Colonic PolypsBenign neoplasm of colon, unspecifiedDivert iculosis of large intestine without perforation or abscess without bleedingFamily history of malignant neoplasm of digestive organsFamily history of colonic polypsEncounter for screening for malignant neoplasm of colon Umm Crews. [address] [facility] [address], [place], [place], [address] , [place]. [phone] Referring Provider: Julio Vinson MD, [address] [place] [address], [address]. tel:[phone] [facility], [address] [address], [place], [place], [id number], tel:[phone] [facility] No Information Rick Delarosa. [address] [facility], [facility] [address], [place], [place], [address] , [place]. [phone] Referring Provider: Julio Vinson MD, [address] [place] [address], [address]. tel:[phone] Family History Family Member Type Diagnosis Age At Onset Father Problem (finding) Mother Problem (finding) Alive and well Brother Problem (finding) Alive and well Daughter Problem (finding) Alive and well Brother Problem (finding) malignant neop lasm of pancreas (Cause Of ) Sister Problem (finding) Alive and well Payers Payer name Insurance type Covered green party ID Authoriza tion(s) [facility] CI [id number] [employer] CI [id number] Social History Type Description Quantity Date Captured Comments Alcohol Use Details Unknown Caffeine Use Details Unknown Tobacco Use Status No Information Smoking Status Former smoker Sex Male Vital Signs Date / Time: Height Weight BMI Pulse Rate Blood Pressure Temperature Respiratory Rate Body Surface Area Head Circumference Head Circ. Percentile Wt./Juan. Percentile BMI percentile Pulse Ox Inhaled Ox 74.00 in 128.800 kg (284.00 lbs) 36.5 0 kg/m eter (2) 58 /min 122/79 mm[Hg] 0.00 F 16 /min 98 % Chief Complaint And Reason For Visit No Information Reason For Referral Reason For Referral No Information Plan Of Treatment Date Type Action Status Referral Ordered: Colonoscopy Appointment date/timeframe: 09/26/2017 ordered History Of Present Illness Encounter Date Complaint History Of Prese nt Illness No Information Functional Status Date Functional Assessmen t No Information Instructions Date Instruction Additional Infor mation No Information Assessments Type Assessment Date assessment Colonic polyps impression assessment Family history of colon polyps J impression assessment Family history of malignant neop lasm of gastrointestinal tract impression assessment Diverticulosis of colon 015 impression assessment Colon Cancer Screening 15 impression assessment Colon Cancer Screening 15 impression Family history of maligna assessment Diverticulosis Of Colon 015 impression Diverticulosis of colon 015 assessment Benign Neoplasm Colon 5 impression Colonic polyps assessment Family Hx/Colonic Polyps 2014 impression Family history of colon p Patient Care Teams Name Effective Dates (start - stop) Status Members No Information
[2024-05-25 08:54] VITALS: BP 112/74; PULSE 89; RESP 18; TEMP 36.1; O2SAT 96; BMI 34.4
--- NOTE | 2024-05-25 09:16 | ED.GENADULT ---
HPI - General Adult General Chief complaint: Neck Injury/Pain Stated complaint: severe neck pain, fever Time Seen by Provider: 05/25/24 08:53 Source: patient Mode of arrival: ambulatory Limitations: no limitations History of Present Illness HPI narrative: Patient is a 58-year-old male presenting today with neck pain. Pain started approximately 5 days ago. Located mostly on the left side of the neck and radiates up the back of the head. He states that he took oxycodone at home that he had postoperatively and this does help the pain except this morning when he took it it did not help at all and today the pain is worse than it has ever been. He states that on which was 2 days ago, he had a temperature of 101?. He has been afebrile since. Temperature reached as high as 99 yesterday. He denies nausea or vomiting. The patient had a shoulder replacement on the right side with approximately 2 weeks ago. His postoperative course has been unremarkable. Patient states that he does have neck discomfort on and off but has never been this bad. He denies feeling dizzy or lightheaded. He denies difficulty breathing. He denies pain with deep inspiration. He denies feeling short of breath. He has no cough. Denies appetite changes. Denies abdominal discomfort. Denies rash. Related Data Home Medications ?Medication ?Instructions ?Recorded ?Confirmed simvastatin 20 mg tablet 20 mg PO HS 05/09/24 05/25/24 Previous Rx's ?Medication ?Instructions ?Recorded amlodipine 10 mg tablet 10 mg PO DAILY #90 tabs 04/02/24 allopurinol 300 mg tablet 300 mg PO DAILY #90 tabs 05/03/24 apixaban 5 mg tablet (Eliquis) 5 mg PO BID #180 tabs 05/03/24 metformin 500 mg tablet,extended 1,000 mg (2 x 500 mg) PO BID #360 05/03/24 release 24 hr tabs metoprolol tartrate 100 mg tablet 100 mg PO BID #180 tabs 05/03/24 acetaminophen 500 mg tablet 500 - 1,000 mg (1 - 2 x 500 mg) PO 05/09/24 Q4-6H PRN #100 tabs cyclobenzaprine 10 mg tablet 10 mg PO TID PRN muscle spasm #10 05/25/24 tabs Allergies Allergy/AdvReac Type Severity Reaction Status Date / Time morphine Allergy Unknown rash, Verified 05/25/24 10:33 tingling and pain up arm CATHERINE Inhibitors AdvReac Mild Cough Verified 05/25/24 10:33 lisinopril AdvReac Mild Cough Verified 05/25/24 10:33 Review of Systems Status of ROS: Reports: 10 or more systems reviewed and unremarkable except as noted in History and below [facility] Medical History Trigger index finger of right hand ?M65.321 - Trigger finger, right index finger (ICD-10) Right carpal tunnel syndrome ?G56.01 - Carpal tunnel syndrome, right upper limb (ICD-10) Type 2 diabetes mellitus, without long-term current use of insulin ?E11.9 - Type 2 diabetes mellitus without complications (ICD-10) Mixed hyperlipidemia ?E78.2 - Mixed hyperlipidemia (ICD-10) Primary hypertension ?I10 - Essential (primary) hypertension (ICD-10) Gout ?M10.9 - Gout, unspecified (ICD-10) Atrial fibrillation ?I48.91 - Unspecified atrial fibrillation (ICD-10) Surgical History History of carpal tunnel surgery of right wrist (03/14/24) ?Z98.890 - Other specified postprocedural states (ICD-10) 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) ?Z96.651 - Presence of right artificial knee joint (ICD-10) S/P arthroscopy of right shoulder (06/20/19) ?Z98.890 - Other specified postprocedural states (ICD-10) 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) ?Z96.641 - Presence of right artificial hip joint (ICD-10) Status post left knee replacement (05/08/18) ?Z96.652 - Presence of left artificial knee joint (ICD-10) History of elbow surgery (04/15/16) ?Z98.890 - Other specified postprocedural states (ICD-10) History of arthroscopy of left shoulder (04/04/19) ?Z98.890 - Other specified postprocedural states (ICD-10) History of arthroscopic knee surgery ?Z98.890 - Other specified postprocedural states (ICD-10) Family History Father Heart disease Brother Pancreatic cancer Mother Diabetes Sister Diabetes Social History Narrative: , 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, grocery store associate, non-smoker, social EtOH What is your current living situation?: I presently have a place to live Problems where you live: no known problems In the past 12 months, utilities in danger of being shut off: no In past 12 months, lack of transportation kept you from medical appts, meetings, work, or getting things needed for daily living: no In the past 12 mos, have been you worried that your food would run out before you had money to buy more?: never true In the past 12 mos, the food you bought just didn't last and you didn't have money to buy more?: never true Highest level of school completed/degree received: decline to answer Smoking Status: Former smoker What tobacco products do you use: cigarettes Smoking quit date/years: >15 years ago Do you use any of these nicotine containing products: None Second hand tobacco smoke exposure: No How often do you have a drink containing alcohol: monthly or less Alcohol type: beer How many standard drinks containing alcohol do you have on a typical day: 1 or 2 How often do you have six or more drinks on one occasion: Never AUDIT-C Alcohol total score: 1 Non-prescribed substance use: denies use Caffeine: Yes (soda) How often does anyone, including family, friends and others, physically hurt you: never How often does anyone, including family, friends and others, insult or talk down to you: never How often does anyone, including family, friends and others, threaten you with harm: never How often does anyone, including family, friends and others, scream or curse at you: never service: No Exam Narrative: Exam Narrative: Overweight, well-developed patient in mild distress. Alert and oriented x3. Answers questions appropriately. Mood and affect are appropriate. Thoughts are goal oriented and rational. No tangential or magical thinking noted. Patient speaks in full sentences without needing to catch his breath. Patient does not appear ill or toxic. He he sits back in bed does not rotate his neck when he speaks. HEENT: Normocephalic atraumatic. Pupils are equally round reactive to light. Extraocular muscles are intact. Conjunctivae are moist without any icterus noted. Moist mucous membranes. Posterior pharynx is normal. Neck is soft without any lymphadenopathy or thyromegaly. No masses are appreciated. No tenderness over the sternocleidomastoids, no anterior tenderness. There is no obvious swelling. There is no redness of the neck. He has no tenderness to palpation over the cervical spine. He is quite tender with palpation of the entire trapezius muscle along the border from the posterior occipital area all the way down to the upper back. I do not feel any swelling or fluctuance in the area the area is not erythematous. He does have decreased range of motion secondary to pain along the left trapezius. Cardiovascular: Irregularly irregular. Lungs: Clear to auscultation bilaterally no wheezes rhonchi or rales are appreciated. Patient takes deep breaths without any discomfort. Extremities: The upper extremities appear normal. Patient has a healing incision on the right anterior shoulder which appears to be healing well without any evidence of infection, drainage or other abnormality. Skin: Well perfused without any obvious rashes. Const: Vital Signs, click to edit/add: Vital Signs - 24 hr 05/25/24 08:54 Temperature 97 F L Pulse Rate [Right Pulse Oximeter] 89 Respiratory Rate 18 Blood Pressure [Ri ght Upper Arm] 112/74 Pulse Oximetry 96 Oxygen Delivery Me thod Room Air Course Course ED Course: Presentation is consistent with a trapezius muscle spasm. However, given that he has had a fever the last couple days will proceed with some laboratory investigations. There is a potential for a soft tissue neck infection, pneumothorax. CBCs unremarkable, however he does have an increase of 80.5% neutrophils. CRP is quite elevated at 7.8. ESR is also elevated at 34. Chemistries are unremarkable. Negative COVID and influenza swabs. Because of his elevated inflammatory markers, fever at home and negative triple swab, I do think it is necessary at this time to proceed with further imaging of the area to make sure there is no underlying infection. Chest x-ray, read by me, does not show any acute pathology. Soft tissue neck CT was unremarkable. Vital Signs Vital signs: Initial Vital Signs Temperature 97 F L 05/25/24 08:54 Temperature Source Temporal Artery Scan 05/25/24 08:54 Pulse Rate 89 05/25/24 08:54 Pulse Rhythm Regular 05/25/24 08:54 Pulse Strength 3+ Normal 05/25/24 08:54 Respiratory Rate 18 05/25/24 08:54 Blood Pressure 112/74 05/25/24 08:54 Blood Pressure Mean 86 05/25/24 08:54 Blood Pressure Position Sitting 05/25/24 08:54 Pulse Oximetry 96 05/25/24 08:54 Oxygen Delivery Method Room Air 05/25/24 08:54 Vital Signs Temperature 97 F L 05/25/24 08:54 Pulse Rate 89 05/25/24 08:54 Respiratory Rate 18 05/25/24 08:54 Blood Pressure 112/74 05/25/24 08:54 Pulse Oximetry 96 05/25/24 08:54 Oxygen Delivery Method Room Air 05/25/24 08:54 Temperature 97 F L 05/25/24 08:54 Pulse Rate 89 05/25/24 08:54 Respiratory Rate 18 05/25/24 08:54 Blood Pressure 112/74 05/25/24 08:54 Pulse Oximetry 96 05/25/24 08:54 Oxygen Delivery Method Room Air 05/25/24 08:54 Medications Administered Medications: Discontinued Medications Generic Name Dose Route Start Last Admin Trade Name Freq PRN Reason Stop Dose Admin Hydromorphone HCl 0.5 mg 05/25/24 09:14 05/25/24 09:33 Hydromorphone 0.5 Mg/0.5 Ml Inj IVP 05/25/24 09:15 0.5 mg ONCE ONE Administration Hydromorphone HCl 0.5 mg 05/25/24 10:50 05/25/24 10:53 Hydromorphone 0.5 Mg/0.5 Ml Inj IVP 05/25/24 10:51 0.5 mg ONCE ONE Administration Medical Decision Making [facility] Narrative Medical decision making narrative: 58-year-old male with neck pain, likely musculoskeletal in nature. He he did have 1 day where he had fevers so further workup was done and no source of the fever has been identified. How evidence of deep infection in the neck or lung area. Will treat with Flexeril. NSAIDs contraindicated secondary to anticoagulation. Patient has oxycodone at home-he has been taking 1 per day. We discussed appropriate dosing. Follow-up with PCP. Lab Data Labs: Lab Results 05/25/24 Range/Units Unknown WBC 9.18 (4.50-11.00) K/uL RBC 4.60 (4.30-5.90) m/uL Hgb 14.0 (13.5-17.5) gm/dL Hct 42.1 (37.0-53.0) % MCV 92 (80-100) fL MCH 30 (26-34) pg MCHC 33 (32-36) gm/dL RDW Coeff of Laurie 12.5 (11.5-15.5) % Plt Count 272 (140-440) K/uL Neut % (Auto) 80.5 H (42.0-72.0) % Lymph % (Auto) 10.7 L (20-44) % Wagoner % (Auto) 8.3 (0.0-11.0) % Eos % (Auto) 0.2 (0.0-7.0) % Baso % (Auto) 0.2 (0.0-3.0) % Neut # (Auto) 7.40 H (1.7-7.0) K/uL Lymph # (Auto) 1.00 (0.90-2.90) K/uL Wagoner # (Auto) 0.80 (0.00-0.90) K/UL Eos # (Auto) 0.02 (0.00-0.50) K/uL Baso # (Auto) 0.02 (0.00-0.30) K/uL Abs Immat Gran (auto) 0.01 (0.00-0.30) K/uL Imm/Tot Granulo (auto) 0.1 % ESR 34 H (2-15) mm/hr Sodium 135 (135-149) mmol/L Potassium 3.9 (3.6-5.1) mmol/L Chloride 98 (96-114) mmol/L Carbon Dioxide 28 (20-32) mmol/L Anion Gap 9 (7-15) mEq/L BUN 11 (7-30) mg/dL Creatinine 0.7 (0.5-1.5) mg/dL Estimated Creat Clear 135.80 Estimated GFR 106 ml/min Glucose 174 H (60-115) mg/dL Lactate 1.1 (0.5-1.9) mmol/L Calcium 8.9 (8.4-10.6) mg/dL C-Reactive Protein 7.8 H (0.5-1.0) mg/dL SARS-CoV-2 (PCR) Negative SARS-CoV-2 (Negative) Influenza Type A (PCR) Negative PCR FLU A (Negative) Influenza Type B (PCR) Negative PCR FLU B (Negative) Imaging Data Chest x-ray: Attestation: I have reviewed the pertinent imaging results. Radiologist's impression: PA and lateral views of the chest were acquired FINDINGS: TUBES AND LINES: None. HEART AND MEDIASTINUM: The heart size is normal. The mediastinal contour appears normal for patient age. LUNGS AND PLEURAL SPACES: The lungs appear normal.The pleural spaces are unremarkable. OSSEOUS STRUCTURES: Age-appropriate appearance. No acute focal finding.Shoulder arthroplasty on the right. IMPRESSION: No evidence of active pulmonary disease. Soft tissue neck ct: Attestation: I have reviewed the pertinent imaging results. Radiologist's impression: CT soft tissue of the neck was acquired with 135 cc of Isovue 370 IV contrast. COMPARISON: None. FINDINGS: Oral cavity, nasopharynx, oropharynx, hypopharynx, larynx and subglottic trachea as imaged show no discrete mucosal lesion. No retropharyngeal fluid or suspicious fluid collection elsewhere in the neck. No pathologic lymphadenopathy. Parotid and submandibular glands: Unremarkable. Thyroid gland: Unremarkable. Vessels: Major vascular structures are grossly patent. Paranasal sinuses and orbits: Unremarkable as imaged. Bones: No acute or suspicious osseous abnormality. Degenerative changes of the spine. Lung apices: Visualized lung apices are clear. IMPRESSION: No suspicious soft tissue lesion or fluid collection in the neck. Discharge Plan Discharge Clinical Impression: Acute neck pain Patient Disposition: Home, Self-Care Condition: Stable Instructions: Acute Neck Pain (ED) Additional Instructions: Okay to take 2 oxycodone at a time. Be aware that this can cause dizziness and increased risk of fall. Follow-up with your primary care provider in the next week if you feel like you are not improving. Return to the ER if you develop vomiting or worsening pain. Prescriptions: New cyclobenzaprine 10 mg tablet 10 mg PO TID PRN (Reason: muscle spasm) Qty: 10 0RF No Action metoprolol tartrate 100 mg tablet 100 mg PO BID Qty: 180 3RF metformin 500 mg tablet extended release 24 hr 1,000 mg PO BID Qty: 360 3RF Eliquis 5 mg tablet 5 mg PO BID Qty: 180 3RF allopurinol 300 mg tablet 300 mg PO DAILY Qty: 90 3RF simvastatin 20 mg tablet 20 mg PO HS acetaminophen 500 mg Tablet 500 - 1,000 mg PO Q4-6H MDD 4,000 mg per day PRNQty: 100 0RF amlodipine 10 mg tablet 10 mg PO DAILY Qty: 90 2RF Follow Up/Referrals: Won Morales MD [Primary Care Provider] - Stand Alone Forms: [facility] Info Instructions
--- OUTSIDE RECORDS SUMMARY | 2024-05-25 09:17 | XMS_ITS | Continuity of Care Document ---
Author Organization [facility] Address [address] [place] [address] Phone Care Team Providers Care Shake Splitter Name Role Phone Sergo Olvera Unavailable Unavailable [...] Available - Active Procedures Procedure Date Office/Outpatient Visit,[facility] 2018 Office/Outpatient Visit,[facility] 2018 X-Ray Exam Of Neck Spine, 4+ Views Advance Directives Directive Yes / No Effective Date File Name No Information Encounters Encounter Description Practice Location Reason(s) For Visit Diagnoses Date Provider Providers Copied on Encounter Office/Outpat ient Visit,[place], [facility], [address], [place], [place], [id number], [place] tel:[phone] [facility] CervicalgiaOther spondylosis, cervical region 9 Nba Trotter. [facility], [address], [place], [place], [address] , [place]. tel:[phone] Referring Provider: Akash Keys [facility] [address] [place], [address]. tel:[phone] Family History Family Member Type Diagnosis Age At Onset No Information Payers Payer name Insurance type Covered constitution party ID Authoriza tiyanira(s) No Information Social History [...]
--- OUTSIDE RECORDS SUMMARY | 2024-05-25 09:17 | XMS_ITS | Continuity of Care Document ---
Author Organization [facility] Address [address] [address] [place] [address] Phone Care Team Providers Care Chore Tender Name Role Phone Umm WRAY, med Unavailable [...] Encounter [facility], [address] [address], [place], [id number], [place] tel:[phone] [place] [facility] Colonic polypsFamily history of colon [...] malignant neoplasm of colon Umm Crews. [address] [facility] [address], [place], [place], [address] , [place]. [phone] Referring Provider: Julio Vinson MD, [address] [place] [address], [address]. tel:[phone] [facility], [address] [address], [place], [place], [id number], tel:[phone] [facility] No Information Rick Delarosa. [address] [facility] [address], [place], [place], [address] , [place]. [phone] Referring Provider: Julio Vinson MD, [address] [place] [address], [address]. tel:[phone] Family History Family Member Type Diagnosis Age At Onset Father Problem (finding) Mother Problem (finding) Alive and well Brother Problem (finding) Alive and well Daughter Problem (finding) Alive and well Brother Problem (finding) malignant neop lasm of pancreas (Cause Of ) Sister Problem (finding) Alive and well Payers Payer name Insurance type Covered libertarian ID Authoriza tion(s) [facility] CI [id number] [employer] CI [id number] Social History Type Description Quantity Date Captured [...]
--- OUTSIDE RECORDS SUMMARY | 2024-05-25 09:17 | XMS_ITS | Clinical Summary ---
Author Organization [employer] [facility] Address [place], [place] [address] Care Team Providers Care Curing Bin Operator Name Role Phone Julio Caicedo MD Primary [...] on file Legal Sex Male 6:20 AM SEAMAN OFFICER Gender Identity Not on file Sexual Orientation Not on file Obstetrics History Last Filed Vital Signs Vital Sign Reading Time Taken Comments Blood Pressure 136/102 05/01/2018 9:39 AM SEAMAN OFFICER Pulse 89 05/01/2018 9:39 AM SEAMAN OFFICER Temperature 36.7 C (98 F) 09/23/2010 12:45 PM CDT Respiratory Rate 18 09/23/2010 6:00 PM CDT Oxygen Saturation 97% 05/01/2018 9:39 AM SEAMAN OFFICER Inhaled Oxygen Concentration - - Weight 137.4 kg (303 lb) 05/01/2018 9:39 AM SEAMAN OFFICER Height 190.5 cm (6' 3) 05/01/2018 9:39 AM SEAMAN OFFICER Body Mass Index 37.87 05/01/2018 9:39 AM SEAMAN OFFICER Plan of Treatment Health Maintenance Due Date [...] age to complete this topic Care Teams Curing Bin Operator Relationship Specialty Start Date End Date Julio Caicedo MD PCP - General Family Practice 08/18/11
--- OUTSIDE RECORDS SUMMARY | 2024-05-25 09:17 | XMS_ITS | Clinical Summary ---
Author Organization [facility] Address [address] [place] [address] Care Team Providers Care Society Editor Name Role Phone Md NILS Ramirez Primary Care Provider [phone] Source Comments You are receiving this document as you are listed as the primary care provider,follow-up provider, or the patient has been referred to you for consultation.This is in compliance with the Medicare and[facility] E[facility] Incentive Program,which states Providers who transition their patient to another setting of careor provider of care or refers their patient to another provider of care shouldprovide summary care record for each transition of care or referral. [facility] Allergies No known active allergies Medications Medication [...] (12/14/2016): LW Modifier: decreased libido LW Onset: [id number] ; Erectile Dysfunction Gout 10/15/2004 Overview (12/14/2016): LW Onset: 28Yfo18 ; Gout NOS Obesity 10/15/2004 Overview (11/26/2015): LW Onset: 74Svl16 Hyperlipidemia 10/15/2004 Overview (11/26/2015): LW Onset: Immunizations [...] 36.3 C (97.3 F) 04/08/2005 3:16 PM TEXTILE PIN WORKER C: 36.3 C Respiratory Rate - - [...] LDL (IF NEEDED) Routine 05/13/2010 8:01 AM TEXTILE PIN WORKER from Last 3 Months or Most Recently Relevant to Health Maintenance Results * (ABNORMAL) Lipid Panel and Direct LDL(If Needed) (05/13/2010 8:01 AM TEXTILE PIN WORKER) Cholesterol 156 0 - 200 mg/dL HP CONVERSION Triglycerides 143 0 - 149 mg/dL HP CONVERSION HDL Cholesterol 35(L) >39 mg/dL HP CONVERSION Cholesterol/HDL Ratio Screen 4.5 No normal range HP CONVERSION LDL Calculated 92 19 - 130 mg/dL HP CONVERSION Hours Fasting 12.0 No normal range HP CONVERSION 05/13/2010 8:01 AM TEXTILE PIN WORKER Agnieszka Berg APRN, [facility] HP CONVERSION from Last 3 Months or Most Recently Relevant to Health Maintenance Care Teams Society Editor Relationship Specialty Start Date End Date Md Ashley, [place] [address] PCP - General 09/23/10
--- OUTSIDE RECORDS SUMMARY | 2024-05-25 09:17 | XMS_ITS | Clinical Summary ---
Author Organization [facility] Address [address] , [address] [place] [address] Phone Care Team Providers Care Purchasing And Claims Supervisor Name Role Phone [facility] Unavailable Unava ilable Conditions or Problems Problem Name Problem Code Onset Date Status Entry Date Provider Comment Standard Description Annotate Ulnar neuropathy , right 123736188 (SNOMED CT) Active [place] MD Ulnar neuropathy Median neuropathy , right 179330243 (SNOMED CT) Active [place] MD Median [...] Procedures Code Procedure Name Date Entry Date CPT-17851 Nerve Conduction 11-12 studies CPT-12053 EMG with NCS (5+ muscles) - 1 limb 12/20 Vital Signs No information available. Immunizations No information available. Advance Directives No information available.
[2024-05-25] MEDS: HYDROmorphone 0.5 mg/0.5 ml inj IVP ×2 (09:33→10:53)
[2024-05-25 09:35] LABS: Lactate* 1.1 mmol/L (0.5-1.9)
[2024-05-25 09:37] LABS: Basophils Absolute Auto 0.02 K/uL (0.00-0.30); Basophils Percent Auto 0.2 % (0.0-3.0); Eosinophils Absolute Auto 0.02 K/uL (0.00-0.50); Eosinophils Percent Auto 0.2 % (0.0-7.0); Hematocrit 42.1 % (37.0-53.0); Immature Granulocytes Abs Auto 0.01 K/uL (0.00-0.30); Immature Granulocytes Pct Auto 0.1 %; Lymphocytes Percent Auto 10.7 % (20-44); Mean Corpuscular HGB Conc 33 gm/dL (32-36); Mean Corpuscular Hemoglobin 30 pg (26-34); Mean Corpuscular Volume 92 fL (80-100); Monocytes Percent Auto 8.3 % (0.0-11.0); Neutrophils Percent Auto 80.5 % (42.0-72.0); Platelet Count* 272 K/uL (140-440); RDW Coefficient of Variation % 12.5 % (11.5-15.5); White Blood Count* 9.18 K/uL (4.50-11.00)
[2024-05-25 09:39] LABS: Slide Review Reflex No
[2024-05-25 09:56] LABS: Chloride* 98 mmol/L (96-114); Potassium* 3.9 mmol/L (3.6-5.1); Sodium* 135 mmol/L (135-149)
[2024-05-25 09:59] LABS: Creatinine* 0.7 mg/dL (0.5-1.5); Estimated Glomerular Filt Rate 106 ml/min
[2024-05-25 10:00] LABS: Anion Gap 9 mEq/L (7-15); Blood Urea Nitrogen* 11 mg/dL (7-30); Calcium* 8.9 mg/dL (8.4-10.6); Carbon Dioxide* 28 mmol/L (20-32); Glucose* 174 mg/dL (60-115)
[2024-05-25 10:02] LABS: C Reactive Protein* 7.8 mg/dL (0.5-1.0)
[2024-05-25 10:15] LABS: PCR FLU A Negative PCR FLU A (Negative); PCR FLU B Negative PCR FLU B (Negative); SARS PCR* Negative SARS-CoV-2 (Negative)
[2024-05-25 10:16] LABS: Erythrocyte SedimentationRate* 34 mm/hr (2-15)
--- NOTE | 2024-05-25 10:22 | CRLHL7_ITS ---
For Patients: As a result of the Cures Act, medical imaging exams and procedure reports are released immediately into your electronic medical record. You may view this report before your referring provider. If you have questions, please contact your health care provider. INDICATION: Left-sided neck pain. Fever. TECHNIQUE: CT soft tissue of the neck was acquired with 135 cc of Isovue 370 IV contrast. COMPARISON: None. FINDINGS: Oral cavity, nasopharynx, oropharynx, hypopharynx, larynx and subglottic trachea as imaged show no discrete mucosal lesion. No retropharyngeal fluid or suspicious fluid collection elsewhere in the neck. No pathologic lymphadenopathy. Parotid and submandibular glands: Unremarkable. Thyroid gland: Unremarkable. Vessels: Major vascular structures are grossly patent. Paranasal sinuses and orbits: Unremarkable as imaged. Bones: No acute or suspicious osseous abnormality. Degenerative changes of the spine. Lung apices: Visualized lung apices are clear. IMPRESSION: No suspicious soft tissue lesion or fluid collection in the neck. Dictated by Josesito Go MD @ 05/25/2024 11:13:22 AM Please note that all CT scans at this facility use dose modulation, iterative reconstruction, and/or weight-based dosing when appropriate to reduce radiation dose to as low as reasonably achievable. Dictated by: Josesito Go MD @ 05/25/2024 11:13:31 (Electronically Signed)
--- NOTE | 2024-05-25 10:23 | CRLHL7_ITS ---
For Patients: As a result of the Cures Act, medical imaging exams and procedure reports are released immediately into your electronic medical record. You may view this report before your referring provider. If you have questions, please contact your health care provider. INDICATION: Pain COMPARISON: None TECHNIQUE: PA and lateral views of the chest were acquired FINDINGS: TUBES AND LINES: None. HEART AND MEDIASTINUM: The heart size is normal. The mediastinal contour appears normal for patient age. LUNGS AND PLEURAL SPACES: The lungs appear normal.The pleural spaces are unremarkable. OSSEOUS STRUCTURES: Age-appropriate appearance. No acute focal finding.Shoulder arthroplasty on the right. IMPRESSION: No evidence of active pulmonary disease. Dictated by Joel De La Torre MD @ 05/25/2024 10:59:32 AM (Electronically Signed)
== END 2024-05-25 11:31 | disposition home or self-care (01) ==
PROVIDERS: Emergency Provider Family Medicine; PCP Family Medicine
DX: M54.2 Cervicalgia (principal)
CPT/HCPCS: 36415; 70491; 71046; 80048; 83605; 85025; 85651; 86140; 87631; 96366; 96374; 96376; 99284; J1171; Q9967

== ENCOUNTER 2024-07-09 08:30 | Outpatient (RCR) | payer OTHER, SELFPAY | END 2024-11-06 23:59 | disposition home or self-care (01) | PROVIDERS: PCP Family Medicine; Visit Provider Orthopaedic Surgery | DX: M19.011 Primary osteoarthritis, right shoulder (principal); Z96.611 Presence of right artificial shoulder joint; Z74.1 Need for assistance with personal care; Z51.89 Encounter for other specified aftercare | CPT/HCPCS: 97110; 97162; 97165; 97535 ==

== ENCOUNTER 2024-11-19 09:14 | Outpatient (CLI) | payer OTHER, SELFPAY | END 2024-11-19 09:15 | disposition home or self-care (01) | PROVIDERS: PCP Family Medicine; Visit Provider Family Medicine | DX: Z12.5 Encounter for screening for malignant neoplasm of prostate (principal); R53.83 Other fatigue | CPT/HCPCS: 84403; G0103 ==

== ENCOUNTER 2025-02-26 08:37 | Outpatient (CLI) | payer OTHER, SELFPAY | END 2025-02-26 08:38 | disposition home or self-care (01) | PROVIDERS: PCP Family Medicine; Visit Provider Family Medicine | DX: E78.2 Mixed hyperlipidemia (principal); I10 Essential (primary) hypertension | CPT/HCPCS: 80048; 80061; 85025 ==

== ENCOUNTER 2025-03-13 06:02 | Day surgery (SDC) | payer OTHER, SELFPAY ==
[2025-03-13] VITALS (20 sets, daily range): BP systolic 90–124; BP diastolic 57–85; PULSE 72–82; RESP 14–16; TEMP 35.8–36.4; O2SAT 89–97; BMI 37.8
[2025-03-13] MEDS: SODIUM CHLORIDE 0.9 % (FLUSH) 10 ML SYRINGE IVF (06:30)
[2025-03-13] MEDS: LACTATED RINGERS 1000 ML 1,000 ML 100 ML IV ×3 (06:30→10:41)
[2025-03-13] MEDS: OXYCODONE (CR) 10 MG TAB.ER.12H PO (06:45)
[2025-03-13] MEDS: ACETAMINOPHEN 500 MG TABLET 1000 MG PO (06:45)
[2025-03-13] MEDS: MIDAZOLAM HCL 1 MG/ML inj IVP (07:03)
[2025-03-13] MEDS: INSULIN REGULAR, HUMAN 100 UNIT/ML VIAL SUBCUT ×2 (07:08→10:01)
--- NOTE | 2025-03-13 07:09 | SUR.PREOP ---
TIME?OUT:?0703 PT/RN/MDA?VERIFICATION?OF?SURGICAL?SITE,?PROCEDURE,?AND?CONSENT OBTAINED?PRIOR?TO?INVASIVE?PROCEDURE.
--- NOTE | 2025-03-13 07:10 | W.PM.H&PU ---
History & Physical Update History & Physical Update H&P Reviewed and patient assessed: No changes noted
[2025-03-13] MEDS: TRANEXAMIC ACID 100 MG/ML INJ 1000 MG IV (07:43)
--- NOTE | 2025-03-13 09:24 | P.ORPRC_ITS ---
Procedure Note Date of procedure: 03/13/25 Procedure: PREOPERATIVE DIAGNOSIS: 1. Left shoulder osteoarthrosis, primary, severe 2. Left shoulder long head of biceps tendinopathy/tenosynovitis 3. Obesity-BMI 37.9 (137 kg) POSTOPERATIVE DIAGNOSIS: 1. Left shoulder osteoarthrosis, primary, severe 2. Left shoulder long head of biceps tendinopathy/tenosynovitis 3. Obesity-BMI 37.9 (137 kg) PROCEDURE: 1. Left total shoulder arthroplasty-anatomic. - of note, 25% added difficulty a nd time for this case due to patient's obesity (BMI 37.9) and shear body size (137 kg) - this required increased number of retractors, assistants, and time. 2. Left shoulder long head of biceps open tenodesis SURGEON: Phoenix Daniel MD. DIRECTOR INTELLIGENCE ANALYSIS PROGRAMS: Jared MONTALVO - Of note, a skilled radiology practitioner assistant was critical for this case to aid in patient positioning, tissue retraction, limb m anipulation/positioning, awareness of and protection of critical structures, and closure. ANESTHESIA: General plus interscalene block EBL: 150 mL IMPLANTS: DePuy INHANCE: XL Blazer. 54 x 19 mm centered humeral head; Extra large glenoid component (cemented ring) - metal central peg to connect the head to the Blazer COMPLICATIONS: None evident INDICATIONS: The patient is a pleasant 59-year-old male who has experienced severe left shoulder pain and difficulty with use. Workup included x-rays which revealed severe osteoarthrosis. Physical exam was consistent with associated pain. Given the deformity, the dysfunction, and the pain, recommendation was made for surgery. DESCRIPTION OF PROCEDURE: Following a thorough discussion of risks, benefits, and alternatives, consent was obtained and the left shoulder was marked. The patient was brought to the operating room and placed supine on the operating table. Induction of anesthesia was undertaken. 3 g IV Ancef and 1 g tranexamic acid was administered within 1 hr of incision preoperatively. Appropriate time- out was performed identifying proper patient, site, and procedure. The operative extremity was prepped and draped in the appropriate sterile fashion using ChloraPrep after the patient was positioned in the beach chair with head in neutral alignment and all bony prominences well padded. A longitudinal incision was made for deltopectoral approach. Deltoid and cephalic vein were retracted laterally and spared throughout the case. The clavipectoral fascia was identified and divided longitudinally staying lateral to the conjoined tendon / coracoid. The conjoined tendon was protected with a blunt Hohmann. The long head of the biceps tendon was identified and tenodesis performed suturing it to the pectoralis major tendon at their confluence. The upper 1/4 of the pectoralis major was released from its insertion. The superior portion of the rotator cuff was inspected and found to have good integrity. The subscapularis was released from its lesser tuberosity via a tenotomy down through the 3 sisters which were cauterized. After releasing the subscapularis, the capsule was released from the inferior humeral neck allowing us to remove the inferior humeral head osteophyte. The subscapularis was also released from the superior glenohumeral ligament and middle glenohumeral ligament. It was then tucked into the subscapularis fossa anteriorly, and we turned our attention to the humeral preparation. The humerus was dislocated, and humeral head cut performed paying attention to the patient's [place] version anatomy and consistet with the preop plan. The guide pin was drilled through the lateral humeral cortex, a Blazer trial consistent with the preop plan was applied, and the humerus was planed. The humerus was then protected with the Blazer and attention was turned to the glenoid preparation. The humerus was retracted posteriorly. The subscap was protected anteriorly and the labrum was released along the glenoid anterior, inferior and posteroinferior regions via combination of Bovie cautery or 15 blade. Based on the preoperative CT scan of the shoulder, the shoulder was found have approximately 15? of retroversion. The preop plan targeted a resting position of 2? retroversion upon completion of the glenoid prep. The guide pin was placed and the subsequent preparation performed with Reamer down to cortical/subchondral bone. Cement was mixed on the back table and filled the ring after thorough irrigation with normal saline was performed followed by suction and drying of the bone. The real implant was opened and inserted with excellent surrounding fit circumferentially. We then turned our attention back to the humerus. Consistent with the preop planning, the appropriate head was selected, trialed, and found have an excellent fixation and tension. 50% bounce-back was visualized with posterior directed force, internal rotation was achieved to 60? comfortably while the shoulder was abducted to 90?, and the conjoined tendon had good tension. At this stage, a 3 min Betadine soak was performed followed by a thorough irrigation with normal saline. Subscapularis was reapproximated with # 1 PDS (x4). The rotator interval was reapproximated as well utilizing a suture tape and scorpion needle. The deltopectoral interval was reapproximated with 0 Vicryl, subcutaneous and subcuticular closure was then performed with number 2-0 Vicryl and 4-0 Monocryl, respectively. A skilled radiology practitioner assistant was critical for this case to aid in patient positioning, tissue retraction, bone exposure, limb manipulation/positioning, shoulder dislocation/relocation, patient safety, and closure. Again, 25% added difficulty and time for this case due to patient's obesity (BMI 37.9) and shear body size (137 kg), requiring increased number of retractors, assistants, and time/difficulty. PLAN: 1. Sling much of the time to operative extremity. May come out of this for elbow, forearm, wrist, and digit range of motion and pendulums, or when sedentary. 2. PT/OT consults for education and assistance. 3. Tylenol, Ibuprofen, and/or Oxycodone for analgesics PRN. 4. Early ambulation encouraged.
--- NOTE | 2025-03-13 09:46 | CRLHL7_ITS ---
For Patients: As a result of the Cures Act, medical imaging exams and procedure reports are released immediately into your electronic medical record. You may view this report before your referring provider. If you have questions, please contact your health care provider. Indication: Total shoulder replacement Technique: Two views left shoulder Findings/Impression: Hardware from a left shoulder arthroplasty is in satisfactory position. Bone alignment is normal. No sign of acute fracture. Postop changes are within normal limits. Dictated by Won Short MD @ 03/13/2025 11:41:30 AM (Electronically Signed)
--- NOTE | 2025-03-13 09:47 | P.ANES_ITS ---
Anesthesia Charges Start Date/Time Anesthesia Start Date: 03/13/25 Anesthesia Start Time: 07:19 Stop Date/Time Anesthesia Stop Date: 03/13/25 Anesthesia Stop Time: 09:47 Coding CPT Codes CPT Codes: ANESTH SHOULDER REPLACEMENT - 01150 ([id number]) P3 - PATIENT W/SEVERE SYS DISEASE, QK - RESIDENT ADVISOR 2-4 CNCRNT ANES PROC, QX - WATER QUALITY CONTROL ENGINEER SVC W/ MD MED DIRECTION
--- NOTE | 2025-03-13 09:47 | W.ANESCHARGE ---
Anesthesia Charges Start Date/Time Anesthesia Start Date: 03/13/25 Anesthesia Start Time: 07:19 Stop Date/Time Anesthesia Stop Date: 03/13/25 Anesthesia Stop Time: 09:47 Coding CPT Codes CPT Codes: ANESTH SHOULDER REPLACEMENT - 10373 ([id number]) P3 - PATIENT W/SEVERE SYS DISEASE, QK - VEGETABLE INSPECTOR 2-4 CNCRNT ANES PROC, QX - SUPERVISOR LEAF SPRING REPAIR SVC W/ MD MED DIRECTION
--- NOTE | 2025-03-13 10:23 | W.PM.NB ---
Nerve Block Nerve Block Time Seen by Provider: 07:05 Date Seen: 03/13/25 Type of block requested by surgeon for post-operative analgesia: supraclavicular Side: left Time out performed: Yes Verification of patient name: Yes Verification of date of : Yes Site marking: site marked Name of person performing procedure: Reji Continuous monitoring Was continuous monitoring of O2 sat, B/P, environmental monitoring specialist, recorded every 15 minutes?: Yes Procedure Checklist: sterile prep, needles and gloves Ultrasound guided. Images saved: Yes Medications given in 5ml increments after negative aspiration: Ropivicaine %: 0.5 mL: 20 Needle gauge: 22 Precedex (mcg): 25 Patient tolerated procedure well: Yes Block Charges Block Charge (with Pro Fee): Brachial Plexus Use of Ultrasound Machine for Block: Yes- US Guidance/pain block
--- NOTE | 2025-03-13 10:24 | P.ANES_ITS ---
Anesthesia Charges Start Date/Time Anesthesia Start Date: 03/13/25 Anesthesia Start Time: 07:19 Stop Date/Time Anesthesia Stop Date: 03/13/25 Anesthesia Stop Time: 09:47 Coding CPT Codes CPT Codes: ANESTH SHOULDER REPLACEMENT - 57873 ([id number]) QK - LIFE SCIENTISTS 2-4 CNCRNT ANES PROC, QX - RESIDENCE LIFE DIRECTOR SVC W/ MD MED DIRECTION, P3 - PATIENT W/SEVERE SYS DISEASE
--- NOTE | 2025-03-13 10:24 | W.ANESCHARGE ---
Anesthesia Charges Start Date/Time Anesthesia Start Date: 03/13/25 Anesthesia Start Time: 07:19 Stop Date/Time Anesthesia Stop Date: 03/13/25 Anesthesia Stop Time: 09:47 Coding CPT Codes CPT Codes: ANESTH SHOULDER REPLACEMENT - 63808 ([id number]) QK - MEDICAL RECEPTION SPECIALIST 2-4 CNCRNT ANES PROC, QX - STRUCTURAL SHOP HELPER SVC W/ MD MED DIRECTION, P3 - PATIENT W/SEVERE SYS DISEASE
[2025-03-13] MEDS: ONDANSETRON 2 MG/ML inj 4 MG IVP (10:35)
[2025-03-13] MEDS: ACETAMINOPHEN 500 MG TABLET PO (13:02)
== END 2025-03-13 13:43 | disposition home or self-care (01) ==
LOC: OR 06:03
PROVIDERS: PCP Family Medicine; Visit Provider Orthopaedic Surgery Sports Medicine
PROC: 0RRJ0JZ Replacement of Right Shoulder Joint with Synthetic Substitute, Open Approach (ICD-10-PCS; CPT 23472; principal; 2025-03-13 07:15)
DX: M19.012 Primary osteoarthritis, left shoulder (principal); M75.22 Bicipital tendinitis, left shoulder; G89.18 Other acute postprocedural pain; E66.9 Obesity, unspecified; Z68.37 Body mass index [BMI] 37.0-37.9, adult; E11.9 Type 2 diabetes mellitus without complications; Z79.84 Long term (current) use of oral hypoglycemic drugs
CPT/HCPCS: 23472; 23430; 01638; 64415; 73030; 76942; 82962; 97165; 97535; A9270; C1776; J0330; J0690; J1815; J2250; J2371; J2405; J2704; J2710; J2795; J3010; J7120; L3670